=== PATIENT | female | born 1980 | race Caucasian/White ===

== ENCOUNTER 2017-04-23 00:04 | Emergency (ER) | payer OTHER ==
[~2017-04-23] VITALS: Ht 167.6 cm; Wt 57.9 kg
[~2017-04-23 00:04] MED LIST: FERR325T63 PO; MULT-6 PO
[2017-04-23 00:06] VITALS: BP 124/81
[2017-04-23] MEDS ORDERED: OMEG100023 PO (00:23)
== END 2017-04-23 02:09 | disposition home or self-care (01) ==
LOC: ED 02:00
DX: S59.902A Unspecified injury of left elbow, initial encounter (principal); Z88.0 Allergy status to penicillin; Z88.6 Allergy status to analgesic agent; F17.200 Nicotine dependence, unspecified, uncomplicated; W01.0XXA Fall on same level from slipping, tripping and stumbling without subsequent striking against object, initial encounter; Y93.89 Activity, other specified; Y99.8 Other external cause status; Y92.69 Other specified industrial and construction area as the place of occurrence of the external cause
CPT/HCPCS: 99284